=== PATIENT | female | born 1965 | race Two or more races ===

== ENCOUNTER 2018-03-21 07:15 | Outpatient (CLI) | payer OTHER | END 2018-03-21 07:18 | disposition home or self-care (01) | LOC: MAMO-SONO 07:15 | DX: Z12.31 Encounter for screening mammogram for malignant neoplasm of breast (principal); N64.89 Other specified disorders of breast ==

== ENCOUNTER 2019-03-25 10:37 | Outpatient (CLI) | payer OTHER | END 2019-03-25 10:43 | disposition home or self-care (01) | LOC: MAMO-SONO 10:37 | DX: N60.11 Diffuse cystic mastopathy of right breast (principal); N60.12 Diffuse cystic mastopathy of left breast; Z80.3 Family history of malignant neoplasm of breast ==

== ENCOUNTER 2021-04-26 09:36 | Outpatient (CLI) | payer OTHER | END 2021-04-26 09:48 | disposition home or self-care (01) | LOC: MAMO-SONO 09:36 | PROVIDERS: ATTEND Surgery | DX: N60.11 Diffuse cystic mastopathy of right breast (principal); N60.12 Diffuse cystic mastopathy of left breast; Z12.31 Encounter for screening mammogram for malignant neoplasm of breast ==

== ENCOUNTER 2023-05-03 09:07 | Outpatient (CLI) | payer OTHER | END 2023-05-03 09:25 | disposition home or self-care (01) | LOC: MAMO-SONO 09:07 | PROVIDERS: ATTEND Surgery | DX: N60.11 Diffuse cystic mastopathy of right breast (principal); N60.12 Diffuse cystic mastopathy of left breast; Z12.31 Encounter for screening mammogram for malignant neoplasm of breast ==

== ENCOUNTER 2024-05-05 09:01 | Outpatient (CLI) | payer OTHER | END 2024-05-05 09:02 | disposition home or self-care (01) | LOC: MAMO-SONO 09:01 | PROVIDERS: ATTEND Surgery | DX: N60.11 Diffuse cystic mastopathy of right breast (principal); N60.12 Diffuse cystic mastopathy of left breast ==

== ENCOUNTER → 2025-05-25 | Outpatient (CLI) | payer OTHER | END | disposition home or self-care (01) | LOC: MAMO-SONO 09:45 | PROVIDERS: ATTEND Surgery | DX: N60.11 Diffuse cystic mastopathy of right breast (principal); N60.12 Diffuse cystic mastopathy of left breast; Z12.31 Encounter for screening mammogram for malignant neoplasm of breast ==